=== PATIENT | female | born 1950 | race Caucasian/White ===

== ENCOUNTER → 2018-07-10 | Outpatient (CLI) | payer MEDICARE, OTHER ==
[~2018-07-10] MED LIST: ASPI-496 PO; CHLO25TA PO; DAPS60GE TD; LANS30CA PO; LEVO125T5 PO; MOEX7.5T2 PO; PROM25TA10 PO; TRAM50TA2 PO; TRET40CR6 TD
[2018-07-10 11:30] LABS: BASOPHILS # (AUTO) 0.03 x10^3/uL (0-0.1); BASOPHILS % (AUTO) 0 % (0-1); EOSINOPHILS # (AUTO) 0.13 x10^3/uL (0-0.4); EOSINOPHILS % (AUTO) 2 % (1-7); LYMPHOCYTES # (AUTO) 2.54 x10^3/uL (1-3.4); LYMPHOCYTES % (AUTO) 31 % (22-44); MD NO; MEAN CORPUSCULAR HEMOGLOBIN 30.1 pg (27.0-34.8); MEAN CORPUSCULAR HGB CONC 33.9 g/dL (32.4-35.8); MEAN CORPUSCULAR VOLUME 88.9 fL (80-100); MEAN PLATELET VOLUME 8.2 fL (7.4-10.4); MONOCYTES # (AUTO) 0.61 x10^3/uL (0.2-0.8); MONOCYTES % (AUTO) 8 % (2-9); NEUTROPHILS # (AUTO) 4.83 x10^3/uL (1.8-6.8); NEUTROPHILS % (AUTO) 59 % (42-75); PLATELET COUNT 336 x10^3/uL (130-400); RED BLOOD COUNT 5.16 x10^6/uL (3.82-5.3); RED CELL DISTRIBUTION WIDTH 13.8 % (9.6-15.2)
[2018-07-10 11:34] LABS: MICROSCOPIC NOT IND
[2018-07-10 11:35] LABS: CULTURE INDICATED? NO
[2018-07-10 11:42] LABS: ALANINE AMINOTRANSFERASE 39 U/L (12-78); ANION GAP 7 mmol/L (5-15); CALCIUM 9.5 mg/dL (8.5-10.1); CHLORIDE 110 mmol/L (98-107); CREATININE 0.88 mg/dL (0.55-1.02)
[2018-07-10 11:44] LABS: ALKALINE PHOSPHATASE 113 U/L (45-117); BILIRUBIN,TOTAL 0.3 mg/dL (0.2-1.0); TOTAL PROTEIN 7.5 g/dL (6.4-8.2)
== END | disposition home or self-care (01) ==
LOC: STAR 10:09
PROVIDERS: ATTEND Orthopaedic Surgery
DX: Z01.818 Encounter for other preprocedural examination (principal); M16.11 Unilateral primary osteoarthritis, right hip
CPT/HCPCS: 36415; 80053; 81003; 85025; 87081; 93005

== ENCOUNTER 2018-07-23 10:14 | Inpatient (IN) | payer MEDICARE, OTHER ==
[~2018-07-23] VITALS: Ht 170.2 cm; Wt 89.5 kg
[2018-07-23] MEDS ORDERED: FENTANYL PF 100 MCG/2ML ONE ×3 (11:20→17:12)
[2018-07-23] MEDS ORDERED: PROPOFOL 10 MG/ML, 20ML ONE (11:20)
[2018-07-23] MEDS ORDERED: MIDAZOLAM 1 MG/ML, 2ML ONE (11:20)
[2018-07-23] MEDS ORDERED: CEFAZOLIN 1,000 MG ONE ×2 (11:21)
[2018-07-23] MEDS ORDERED: ONDANSETRON 2MG/ML, 2ML ONE ×2 (11:21→14:26)
[2018-07-23] MEDS ORDERED: KETOROLAC 60 MG/2 ML ONE (11:36)
[2018-07-23] MEDS ORDERED: EPINEPHRINE 1 MG/ML, 1ML ONE (11:36)
[2018-07-23] MEDS ORDERED: ROPIvacaine/PF 0.2%, 20 ML ONE (11:36)
[2018-07-23] MEDS ORDERED: TRANEXAMIC ACID 100 MG/ML, 10ML ONE (11:36)
[2018-07-23] MEDS ORDERED: SODIUM CHLORIDE 0.9% 100 ML ONE (11:36)
[2018-07-23] MEDS ORDERED: LACTATED RINGERS 1,000 ML IV SCH (12:44)
[2018-07-23] MEDS ORDERED: ONDANSETRON ODT 8 MG PO ONE (13:00)
[2018-07-23] MEDS ORDERED: GABAPENTIN 300 MG CAPSULE PO ONE (13:00)
[2018-07-23] MEDS ORDERED: ACETAMINOPHEN 500 MG TABLET PO ONE (13:00)
[2018-07-23 13:48] VITALS: BP 122/80
[2018-07-23] MEDS: D5%-0.45% NACL 1,000 ML IV SCH ×2 (13:57→21:57)
[2018-07-23] MEDS ORDERED: SENNA/DOCUSATE TABLET PO PRN (14:00)
[2018-07-23] MEDS ORDERED: PROMETHAZINE 12.5 MG SUPP PR PRN ×2 (14:00→15:00)
[2018-07-23] MEDS ORDERED: ALUMINUM/MAG/SIMETHICONE 30 ML UDC PO PRN (14:00)
[2018-07-23] MEDS ORDERED: MAGNESIUM HYDROXIDE 8%, 30ML UDC PO PRN (14:00)
[2018-07-23] MEDS ORDERED: TRETINOIN HOMETD PRN (14:00)
[2018-07-23] MEDS ORDERED: PROMETHAZINE 25 MG/ML, 1ML IM PRN (14:00)
[2018-07-23] MEDS ORDERED: SCOPOLAMINE PATCH, 1.5MG PATCH.TD72 TD ONE (14:00)
[2018-07-23] MEDS ORDERED: BISACODYL 10 MG SUPP PR PRN (14:00)
[2018-07-23] MEDS ORDERED: OXYcodone IR 5MG TABLET PO PRN (14:00)
[2018-07-23] MEDS ORDERED: HYDROmorphone 1 MG/ML, 1ML AMP IV PRN (14:00)
[2018-07-23] MEDS ORDERED: ZOLPIDEM 5MG TABLET PO PRN (14:00)
[2018-07-23] MEDS ORDERED: ONDANSETRON 4 MG TABLET PO PRN (14:00)
[2018-07-23] MEDS ORDERED: [UNRECOGNIZED DRUG - OTHER] HOMETD PRN (14:00)
[2018-07-23] MEDS ORDERED: ONDANSETRON 2MG/ML, 2ML IV PRN (14:00)
[2018-07-23] MEDS ORDERED: DIAZEPAM 5 MG TABLET PO PRN (14:00)
[2018-07-23] MEDS: ACETAMINOPHEN 650 MG/20.3 ML UDC PO SCH ×2 (14:00→21:04)
[2018-07-23] MEDS ORDERED: DIPHENHYDRAMINE 25 MG CAPSULE PO PRN (14:00)
[2018-07-23] MEDS ORDERED: PROPOFOL 50 ML ONE ×3 (14:16→15:50)
[2018-07-23] MEDS ORDERED: SUGAMMADEX 200 MG/2 ML IVPush ONE (14:20)
[2018-07-23] MEDS ORDERED: PROMETHAZINE 25 MG/ML, 1ML ONE (14:20)
[2018-07-23] MEDS ORDERED: DEXAMETHASONE 4 MG/ML, 5ML ONE (14:26)
[2018-07-23] MEDS ORDERED: METOCLOPRAMIDE 5 MG/ML, 2ML ONE (14:26)
[2018-07-23] MEDS ORDERED: SUCCINYLCHOLINE 20 MG/ML, 10ML ONE (14:26)
[2018-07-23] MEDS ORDERED: MORPHINE SULFATE 4 MG/ML, 1ML IVPush PRN (15:00)
[2018-07-23] MEDS ORDERED: MEPERIDINE/PF 25MG/0.5ML IVPush PRN (15:00)
[2018-07-23] MEDS ORDERED: hydrALAzine 20 MG/ML, 1ML IV PRN (15:00)
[2018-07-23] MEDS ORDERED: LORazepam 2 MG/ML, 1ML IVPush PRN (15:00)
[2018-07-23] MEDS ORDERED: METOCLOPRAMIDE 5 MG/ML, 2ML IV PRN (15:00)
[2018-07-23] MEDS ORDERED: OXYcodone 5 MG/5 ML ORAL.SOL UDC PO PRN (15:00)
[2018-07-23] MEDS ORDERED: DIPHENHYDRAMINE 50 MG/ML, 1ML IVPush PRN (15:00)
[2018-07-23] MEDS ORDERED: EPHEDRINE 50 MG/ML, 1ML IM PRN (15:00)
[2018-07-23] MEDS ORDERED: FENTANYL PF 100 MCG/2ML IV PRN (15:00)
[2018-07-23] MEDS ORDERED: TRANEXAMIC ACID 1,000 MG in SODIUM CHLORIDE 0.9% 100 ML IVPB ONE (16:00)
[2018-07-23] MEDS ORDERED: MEPERIDINE/PF 25MG/ML,1ML ONE (16:52)
[2018-07-23] MEDS ORDERED: HYDROmorphone 2 MG/ML, 1ML ONE (17:12)
[2018-07-23] MEDS: HYDROmorphone 2 MG/ML, 1ML IVPush PRN ×2 (17:14→17:32)
[2018-07-23] MEDS ORDERED: ASPIRIN 81 MG TABLET EC PO SCH (18:00)
[2018-07-23 20:10] VITALS: BP 112/66
[2018-07-23] MEDS ORDERED: LISINOPRIL 10 MG TABLET PO SCH (21:00)
[2018-07-23] MEDS: TAMSULOSIN 0.4 MG CAP.ER.24H PO SCH (21:03)
[2018-07-23] MEDS: DOCUSATE 100 MG CAPSULE PO SCH (21:04)
[2018-07-23] MEDS: ASPIRIN 81 MG TABLET EC HOMEMEDPO SCH (21:05)
[2018-07-23] MEDS: CEFAZOLIN PMX 2GM/50ML 50 ML IVPB SCH (21:46)
[2018-07-23] MEDS ORDERED: PROMETHAZINE 25MG TABLET PO PRN (22:00)
[2018-07-24 00:02] VITALS: BP 111/62
[2018-07-24] MEDS: ACETAMINOPHEN 650 MG/20.3 ML UDC PO SCH ×2 (02:00→08:00)
[2018-07-24 05:00] VITALS: BP 108/69
[2018-07-24] MEDS: CEFAZOLIN PMX 2GM/50ML 50 ML IVPB SCH (05:35)
[2018-07-24] MEDS: ASPIRIN 81 MG TABLET EC HOMEMEDPO SCH (05:43)
[2018-07-24] MEDS: D5%-0.45% NACL 1,000 ML IV SCH (05:57)
[2018-07-24] MEDS ORDERED: LEVOTHYROXINE 125 MCG TABLET HOMEMEDPO SCH ×2 (06:00→09:00)
[2018-07-24] MEDS ORDERED: PANTOPROZOLE 40MG TABLET PO SCH (06:00)
[2018-07-24] MEDS ORDERED: DEXAMETHASONE 4 MG/ML, 1ML IVPush SCH (06:00)
[2018-07-24 07:15] VITALS: BP 116/67
[2018-07-24] MEDS ORDERED: LANSOPRAZOLE 30MG HOMEMEDPO SCH (07:30)
[2018-07-24] MEDS: TAMSULOSIN 0.4 MG CAP.ER.24H PO SCH (08:07)
[2018-07-24] MEDS: DOCUSATE 100 MG CAPSULE PO SCH (08:07)
[2018-07-24] MEDS ORDERED: MOEXIPRIL 15 MG HOMEMEDPO SCH (09:00)
[2018-07-24] MEDS ORDERED: MULTIVITAMINS/MINERALS TABLET PO SCH (09:00)
[2018-07-24] MEDS ORDERED: CHLORTHALIDONE 25 MG TABLET HOMEMEDPO SCH (09:00)
[2018-07-24 10:13] VITALS: BP 111/64
[2018-07-24] MEDS ORDERED: HYDR2TAB29 PO (10:42)
[2018-07-24] MEDS ORDERED: KETOROLAC 30 MG/1 ML IV SCH (14:00)
== END 2018-07-24 11:51 | disposition home or self-care (01) | DRG 469 ==
LOC: ORIP 12:30 → 4NOR 18:32 → DCLOUNGE 07-24 11:51
PROVIDERS: ADMIT Orthopaedic Surgery; ATTEND Orthopaedic Surgery
PROC: 0SR906A Replacement of Right Hip Joint with Oxidized Zirconium on Polyethylene Synthetic Substitute, Uncemented, Open Approach (ICD-10-PCS; principal; 2018-07-23 12:45)
DX: M16.11 Unilateral primary osteoarthritis, right hip (principal); R53.2 Functional quadriplegia; E03.9 Hypothyroidism, unspecified; I10 Essential (primary) hypertension; M25.851 Other specified joint disorders, right hip; Z88.0 Allergy status to penicillin; Z88.8 Allergy status to other drugs, medicaments and biological substances
CPT/HCPCS: 36415; 72170; 85014; 85018; 86850; 86900; C1713; G0378; J0171; J0690; J1100; J1170; J1885; J2175; J2250; J2405; J2550; J2704; J2795; J3010; Q0169; C1776; J0330; J2765; J7120